=== PATIENT | female | born 1985 | race Asian ===

== ENCOUNTER 2017-12-07 20:15 | Emergency (ER) | payer OTHER ==
[2017-12-07 20:47] VITALS: BP 110/52
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
== END 2017-12-07 20:46 | disposition home or self-care (01) ==
LOC: ED 20:15
DX: T23.211A Burn of second degree of right thumb (nail), initial encounter (principal); T31.0 Burns involving less than 10% of body surface; X12.XXXA Contact with other hot fluids, initial encounter; Y92.9 Unspecified place or not applicable
CPT/HCPCS: 99282